=== PATIENT | male | born 1950 | race Caucasian/White ===

== ENCOUNTER 2021-02-28 12:38 | Emergency (ER) | payer OTHER, MEDICARE, SELFPAY ==
[2021-02-28 12:42] VITALS: BP 127/71; PULSE 84; RESP 16; TEMP 37; O2SAT 94; BMI 28.2
--- NOTE | 2021-02-28 12:59 | XRR_ITS ---
PROCEDURE INFORMATION: Exam: XR Chest Exam date and time: 02/28/2021 12:59 PM Age: 70 years old Clinical indication: Injury or trauma; Fall; Blunt trauma (contusions or hematomas); Additional info: Fall, rule out aspiration TECHNIQUE: Imaging protocol: XR of the chest. Views: 1 view. COMPARISON: No relevant prior studies available. FINDINGS: Lungs: Subsegmental atelectasis in the left base. The remaining lung zones are clear. Pleural spaces: Unremarkable. No pleural effusion. No pneumothorax. Heart/Mediastinum: The patient has undergone coronary bypass surgery. Bones/joints: Unremarkable. XR/XR chest 1V portable [id number] IMPRESSION: Mild left basilar atelectasis.
--- NOTE | 2021-02-28 12:59 | CT_ITS ---
WS: [id number] CT HEAD NONCONTRAST HISTORY: fall, prior stroke 2016 TECHNIQUE: Contiguous axial imaging performed through the brain in 2.5 mm imaging. Bone and soft tiss ue windows. Sagittal and coronal reformats reviewed. All CT scans at [facility] use at ast one of these dose optimization techniques: automated exposure control; mA and/or kV adjustment pe r patient size (includes targeted exams where dose is matched to clinical indication); or iterative r econstruction. DLP: 1142.64 mGy.cm COMPARISON: None available. No acute intracranial hemorrhage, midline shift or mass effect. Mild atrophy. Atrophy is asymmetric with greater atrophy on the RIGHT. There is a prior infarct invol ving the posterior RIGHT frontal lobe with encephalomalacia. Diffuse low attenuation involving large portion of the white matter in the RIGHT cerebrum. Encephalomalacia and volume loss near the RIGHT middle cerebral artery. This is probably from a prior hemorrhage. There are multiple aneurysm clips in the region of the distal RIGHT ICA and JAMIL. Ventricles: Mild ex vacuole dilatation of the ventricles, RIGHT greater than LEFT. Paranasal sinuses: As visualized are clear. Mastoid air cells: Well pneumatized. Calvarium and scalp: RIGHT frontotemporal craniotomy site. CT/CT head wo con* [id number] IMPRESSION: 1. No acute intracranial hemorrhage or edema. 2. Postsurgical changes involving the RIGHT frontal lobe with aneurysm clips n ear the distal RIGHT ICA and anterior cerebral artery. No acute hemorrhage. 3. Volume loss and prior ischemic event involving a large portion of the RIGHT frontal lobe with encephalomalacia.
--- NOTE | 2021-02-28 13:00 | ECG_ITS ---
[facility] Test Date: 2021-02-28 Pat Name: Igor Johnson Department: Room: Gender: Male Die Developer: : 1950 Requested By: Kishor Pierson Order Number: [id number] Waqas MD: Jaime Enriquez M.D. Measurements Intervals [place] Rate: 82 P: 60 AL: 218 QRS: 40 QRSD: 98 T: 63 QT: 369 QTc: 433 Interpretive Statements SINUS RHYTHM WITH FIRST DEGREE AV BLOCK POSSIBLE INFERIOR MYOCARDIAL INFARCTION , PROBABLY OLD [30 ms Q WAVE IN II/aVF] POSSIBLE ANTEROLATERAL MYOCARDIAL INFARCTION , PROBABLY OLD [30 ms Q WAVE IN I/aVL/V3-V6] No previous ECG available for comparison Electronically Signed On 02-28-2021 19:28:52 CDT by Jaime Enriquez M.D. [id number]
--- NOTE | 2021-02-28 13:05 | W.ED.GENADLT ---
HPI - General Adult General: Chief complaint: Seizure Stated complaint: SEIZURE, VOMITING Time Seen by Provider: 02/28/21 12:41 History of Present Illness: HPI narrative: HPI: [70]yo patient w/ hx of seizures since 2016, prior stroke in 2016 c/b R sided weakness, prior aneurysmal clipping, DM, CABG BIBA from snf with breakthrough episode of seizure with unknown duration which occurred earlier this morning. This episode was not witnessed by snf staff. Patient reports that he was walking to the bathroom when this happened. Patient denies any bruises on his head, injuries or collapse. By the time, snf found patient, he was AAOx3. He reports he had muscle cramps which is associated with prior episodes of seizures. Patient is on keppra 1000mg BID for seizure and he reports taking the medicine compliantly.. He had about 1 episode of emesis. Denies any other GI or complaints. En route, the patient had a fingerstick glucose wnl and was back to baseline. HDS without any signs of focal neurological deficits. On arrival, the patient is AAOx3, GCS of 15 and answering all questions. The patient denies any associated chest pain, shortness of breath, palpitations, or any focal pain in the arms and legs. Of note, patient has reported gradual jaundice x 3 weeks. Onset: earlier today Duration: x1 episode Location: home Severity: moderate Review of Systems Narrative: Constitutional: No fever, no chills. HEENT: No vision changes CV: No chest pain, no palpitations PULM: No productive cough, no dyspnea. GI: No abdominal pain, no N/V/D. +jaundice : No Dysuria MSKEL: No muscle pain SKIN: No new rashes, no lesions. NEURO: No headache, no focal weakness. + 1 episode of seizure HEME: No visible bruises PSYCH: Normal mood Physical Exam Narrative: EXAM NARRATIVE: Head: Atraumatic Eyes: PERRL, conjunctiva without injection, eyes tracking, +mild scleral icterus ENT: Mucous membrane moist NECK: Supple without lymphadenopathy LUNGS: LCTAB CV: RRR ABDOMEN: Soft, nontender in all quadrants, no guarding or rebound tenderness, no CVA or flank tenderness bilaterally EXTREMITY: Normal ROM SKIN: No rash or erythema NEURO: CN II-XII tested and intact. Sensation intact to sharp/dull differentiation in all extremities. Motor: Normal tone and bulk. No abnormal movements appreciated. No pronator drift. Strength tested 5/5 L wrist flexion/extension, L elbow flexion/extension, L shoulder abduction, L straight leg raise, L knee flexion/extension, L ankle dorsiflexion/plantarflexion. Strength tested 3-4/5 L wrist flexion/extension, L elbow flexion/extension, L shoulder abduction, L straight leg raise, L knee flexion/extension, L ankle dorsiflexion/plantarflexion. Coordination: Finger to nose and heel to young testing intact L. Unable to perform finger to nose on the R. PSYCH: Cooperative mood and affect Course Vital Signs: Vital signs: Vital Signs Temperature 98.6 F 02/28/21 12:42 Pulse Rate 67 02/28/21 21:07 Respiratory Rate 18 02/28/21 21:07 Blood Pressure 117/64 02/28/21 21:07 Pulse Oximetry 96 02/28/21 21:07 MDM - General Adult MDM Narrative: Medical decision making narrative: [70]yo patient w/ known hx of seizure on keppra 1000mg BID medications BIBA for concern of possible unwitnessed seizure at snf. Back to baseline on arrival, AAOX3, neuro exam consistsent with baseline exam. HDS. Exam revealed no focal trauma/deformity/bruises.The episode of seizure was witnessed and without any trauma/injury to the head. No immunosuppression hx and without preceding fever. No lips/tongue lacerations. No visible bowel/bladder incontinence Airway protected. No drooling. Sats > 95%. Unlikely to be stroke, neurogenic syncope, acute delirium, intracranial tumor/mass, intracranial bleed, SAH/subdural hematoma/epidural hematoma, meningitis, or intracranial abscess, or from alcohol withdrawal. POC glucose: 150 Workup: CBC, BMP, Magnesium, EKG, CT brain ED Interventions: 1g of keppra, PO challenge, serial reassessment EKG: No e/o STEMI. No evidence of Brugada?s sign, delta wave, epsilon wave, significantly prolonged QTc, or malignant arrhythmia. Lab findings: Sodium of 130, troponin of 17, T bili of 6 [2:24] On reassessment, patient back to baseline. In the ED, the patient received 1g of keppra in the ED. No other witnessed episodes of seizure while the patient was observed in the ED. Repeat neuro exam is non-focal. Unlikely to be alternative causes of seizures since the patient has no hx of immunosuppression, no recent fevers, no recent abx/LINE PRODUCER shunt, no recent toxic exposure, no unilateral or focal weakness, or trauma. Order CT abdomen pelvis and refer quadrant ultrasound for evaluation T bili of 6. Have discussed the findings of these reports and his lab abnormality with the patient. I explained to him that is unlikely to a sodium 130 would be causing his seizure. Patient has a history of CABG today his troponin is noted to be 17 with unknown baseline. US showed CBD enlargement and CT abd+pelvis showed possible stone vs tissue causing obstruction. I discussed case with our hospitalist who agrees with inpatient admission for MRCP. However, right prior to MRCP, patient was deemed not a candidate for MRCP given aneurysmal clipping. Given no GI services here in our hospital to perform ERCP, the decision was made to transfer patient. I have discussed case with Dr. Allan from [facility] who agrees with transfer at this time. Physician: Transfer to outside hospital for ERCP Lab Data: Labs: Lab Results 02/28/21 02/28/21 02/28/21 Range/Units 13:00 13:00 13:00 WBC 9.7 (4.0-10.0) 10^3/ uL RBC 4.64 (4.1-5.3) 10^6/u L Hgb 14.0 (11.7-16.6) g/dL Hct 42.7 (42.0-52.0) % MCV 92.0 (80-94) fl MCH 30.2 (28.0-34.0) pg MCHC 32.8 (30.0-36.0) g/dL RDW 14.6 (12.1-15.1) % Plt Count 245 (130-400) 10^3/c mm MPV 10.9 H (7.4-10.4) fL Neut % (Auto) 89.1 % Lymph % (Auto) 3.9 % [place] % (Auto) 6.2 % Eos % (Auto) 0.1 % Baso % (Auto) 0.2 % Neut # (Auto) 8.64 H (1.8-7.7) 10^3/u L Lymph # (Auto) 0.4 L (0.8-4.8) 10^3/u L [place] # (Auto) 0.6 (0.2-0.9) 10^3/u L Eos # (Auto) 0.0 (0.0-0.8) 10^3/u L Baso # (Auto) 0.0 (0.0-0.1) 10^3/u L Nucleated RBC % (a uto) 0 % Nucleated RBCs # 0.0 /100WBC Sodium 130 L (136-145) mmol/L Potassium 4.5 (3.5-5.1) mmol/L Chloride 94 L (98-107) mmol/L Carbon Dioxide 22 (22-29) mmol/L Anion Gap 18.5 (5-19) BUN 18 (8-23) mg/dL Creatinine 1.0 (0.7-1.2) mg/dL GFR Calculation Not Reportable Glucose 199 H (65-115) mg/dL Calculated Osmolal ity 277 L (285-295) mOsm/k g Calcium 9.5 (8.5-10.5) mg/dL Total Bilirubin 6.5 H (0.15-1.2) mg/dL AST 159 H (0-40) U/L ALT 196 H (0-41) U/L Alkaline Phosphata se 413 H (40-130) IU/L Troponin T Baselin e 18 H (0-15) ng/L Troponin T 120 Min jermaine (0-15) ng/L Delta Troponin T (0-10) ABS# Total Protein 7.2 (6.6-8.7) g/dL Albumin 4.0 (3.5-5.2) g/dL Globulin 3.2 (1.3-4.6) g/dL Lipase 46 (13-60) U/L Urine Color (Yellow) Urine Appearance (CLEAR) Urine pH (5-7) Ur Specific Gravit y (1.005-1.030) Urine Protein (Negative) Urine Glucose (UA) (Normal) Urine Ketones (Negative) Urine Blood (Negative) Urine Nitrate (Negative) Urine Bilirubin (Negative) Urine Urobilinogen (Negative) mg/dL Ur Leukocyte Carina ase (Negative) Urine RBC (0-2) /hpf Urine WBC (0-5) /hpf Ur Squamous Epith Cells (0-5) /hpf Amorphous Sediment Urine Bacteria (NONE) /hpf SARS-CoV-2 Ag (Rap id) (Negative) 02/28/21 02/28/21 02/28/21 Range/Units 14:10 14:15 15:00 WBC (4.0-10.0) 10^3/ uL RBC (4.1-5.3) 10^6/u L Hgb (11.7-16.6) g/dL Hct (42.0-52.0) % MCV (80-94) fl MCH (28.0-34.0) pg MCHC (30.0-36.0) g/dL RDW (12.1-15.1) % Plt Count (130-400) 10^3/c mm MPV (7.4-10.4) fL Neut % (Auto) % Lymph % (Auto) % [place] % (Auto) % Eos % (Auto) % Baso % (Auto) % Neut # (Auto) (1.8-7.7) 10^3/u L Lymph # (Auto) (0.8-4.8) 10^3/u L [place] # (Auto) (0.2-0.9) 10^3/u L Eos # (Auto) (0.0-0.8) 10^3/u L Baso # (Auto) (0.0-0.1) 10^3/u L Nucleated RBC % (a uto) % Nucleated RBCs # /100WBC Sodium (136-145) mmol/L Potassium (3.5-5.1) mmol/L Chloride (98-107) mmol/L Carbon Dioxide (22-29) mmol/L Anion Gap (5-19) BUN (8-23) mg/dL Creatinine (0.7-1.2) mg/dL GFR Calculation Glucose (65-115) mg/dL Calculated Osmolal ity (285-295) mOsm/k g Calcium (8.5-10.5) mg/dL Total Bilirubin (0.15-1.2) mg/dL AST (0-40) U/L ALT (0-41) U/L Alkaline Phosphata se (40-130) IU/L Troponin T Baselin e (0-15) ng/L Troponin T 120 Min jermaine 17.91 H (0-15) ng/L Delta Troponin T -0.09 L (0-10) ABS# Total Protein (6.6-8.7) g/dL Albumin (3.5-5.2) g/dL Globulin (1.3-4.6) g/dL Lipase (13-60) U/L Urine Color [place] (Yellow) Urine Appearance Clear (CLEAR) Urine pH 5 (5-7) Ur Specific Gravit y 1.010 (1.005-1.030) Urine Protein Trace (Negative) Urine Glucose (UA) Trace H (Normal) Urine Ketones Negative (Negative) Urine Blood Neg (Negative) Urine Nitrate Negative (Negative) Urine Bilirubin 2+ H (Negative) Urine Urobilinogen 4 H (Negative) mg/dL Ur Leukocyte Carina ase Negative (Negative) Urine RBC None (0-2) /hpf Urine WBC None (0-5) /hpf Ur Squamous Epith Cells None (0-5) /hpf Amorphous Sediment Not Reportable Urine Bacteria None (NONE) /hpf SARS-CoV-2 Ag (Rap id) Negative (Negative) Imaging Data^: Other Imaging: Radiologist's impression: [address] [id number] Scan ReportSigned Patient: Alisson Johnson #: [id number]: 1950cct#:[id number]/Sex: 70 / MADM Date: 02/28/21Loc: ERRoom/Bed:Attending Dr: Ordering Provider/Ordering MD: Kishor Pierson MD Date of Service: 02/28/21 Procedure(s): CT head wo con* [id number] Accession Number(s): [id number] Report Number: [id number] WS: [id number] CT HEAD NONCONTRAST HISTORY: fall, prior stroke 2016 TECHNIQUE: Contiguous axial imaging performed through the brain in 2.5 mm imaging. Bone and soft tissue windows. Sagittal and coronal reformats reviewed. All CT scans at [facility] use at least one of these dose optimization techniques: automated exposure control; mA and/or kV adjustment per patient size (includes targeted exams where dose is matched to clinical indication); or iterative reconstruction. DLP: 1142.64 mGy.cm COMPARISON: None available. No acute intracranial hemorrhage, midline shift or mass effect. Mild atrophy. Atrophy is asymmetric with greater atrophy on the RIGHT. There is a prior infarct involving the posterior RIGHT frontal lobe with encephalomalacia. Diffuse low attenuation involving large portion of the white matter in the RIGHT cerebrum. Encephalomalacia and volume loss near the RIGHT middle cerebral artery. This is probably from a prior hemorrhage. There are multiple aneurysm clips in the region of the distal RIGHT ICA and JAMIL. Ventricles: Mild ex vacuole dilatation of the ventricles, RIGHT greater than LEFT. Paranasal sinuses: As visualized are clear. Mastoid air cells: Well pneumatized. Calvarium and scalp: RIGHT frontotemporal craniotomy site. CT/CT head wo con* [id number] IMPRESSION: 1. No acute intracranial hemorrhage or edema. 2. Postsurgical changes involving the RIGHT frontal lobe with aneurysm clips near the distal RIGHT ICA and anterior cerebral artery. No acute hemorrhage. 3. Volume loss and prior ischemic event involving a large portion of the RIGHT frontal lobe with encephalomalacia. Dictated By:Diana Hendricks DOSigned By:Diana Hendricks DOSigned Date/Time:02/28/21 1322DD/ [address] [id number] ReportSigned Patient: Alisson Johnson #: [id number]: [id number]#:[id number]/Sex: 70 / MADM Date: 02/28/21Loc: [facility] [place]/Bed:Attending Dr: Ordering Provider/Ordering MD: Kishor Pierson MD Date of Service: 02/28/21 Procedure(s): XR chest 1V portable [id number] Accession Number(s): [id number] Report Number: [id number] PROCEDURE INFORMATION: Exam: XR Chest Exam date and time: 02/28/2021 12:59 PM Age: 70 years old Clinical indication: Injury or trauma; Fall; Blunt trauma (contusions or hematomas); Additional info: Fall, rule out aspiration TECHNIQUE: Imaging protocol: XR of the chest. Views: 1 view. COMPARISON: No relevant prior studies available. FINDINGS: Lungs: Subsegmental atelectasis in the left base. The remaining lung zones are clear. Pleural spaces: Unremarkable. No pleural effusion. No pneumothorax. Heart/Mediastinum: The patient has undergone coronary bypass surgery. Bones/joints: Unremarkable. XR/XR chest 1V portable [id number] IMPRESSION: Mild left basilar atelectasis. Dictated By:Tommy Vail By:Tommy Vail Date/Time:02/28/21 1354DD/ [address] [id number] Scan ReportSigned Patient: Alisson Johnson #: [id number]: 1950cct#:[id number]/Sex: 70 / MADM Date: 02/28/21Loc: ERRoom/Bed:Attending Dr: Ordering Provider/Ordering MD: Kishor Pierson MD Date of Service: 02/28/21 Procedure(s): CT abdomen pelvis w con* [id number] Accession Number(s): [id number] Report Number: [id number] WS: [id number] CT ABDOMEN AND PELVIS WITH CONTRAST HISTORY: t bili elevation and lab abnormality TECHNIQUE: Imaging performed of the abdomen and pelvis with IV contrast. Single phase imaging of the abdomen. Coronal and sagittal reformats are submitted. All CT scans at [facility] use at least one of these dose optimization techniques: automated exposure control; mA and/or kV adjustment per patient size (includes targeted exams where dose is matched to clinical indication); or iterative reconstruction. IV CONTRAST: Omnipaque 300; 95 mL IV. Oral contrast: No DLP: 1945.99 mGy.cm COMPARISON: Gallbladder ultrasound 02/28/2021 Lower thorax: Dependent changes at the lung bases. Heart is normal size. Small hiatal hernia. Liver/biliary system: Normal size liver. Mild intrahepatic duct dilatation. No mass identified. Portal vein is normal. Common bile duct is dilated measuring up to 11 mm in diameter. There is a filling defect in the distal common bile duct near the ampulla measuring 8 mm. Gallbladder: Well distended gallbladder. Small amount of sludge within the gallbladder but no stones identified. Pancreas: Normal pancreas. Common bile duct at pancreatic head is dilated to 11 mm. There is a filling defect measuring 9 mm within the common bile duct. Spleen: Normal size spleen. No mass or infarct. Adrenal glands: Mild LEFT adrenal hyperplasia. Right kidney: Normal. Left kidney: Upper pole cyst measures 3.0 cm. No solid mass. Aorta: Moderate atherosclerosis with no aneurysm. Lymphadenopathy: None. Free fluid: None. GI tract: Normal appendix. Moderate fecal retention throughout the colon. No significant diverticular disease. There is very mild rectal wall thickening which is asymmetric and greatest on the RIGHT measuring up to 12 mm. Prostate gland seeds are noted. Inguinal canals are patent bilaterally. Abdominal wall: Fat containing umbilical hernia. Pelvis: No free fluid or adenopathy within the pelvis. Patent inguinal canals. Bones: Moderate facet joint arthritis and disc space narrowing at L5-S1. CT/CT abdomen pelvis w con* [id number] IMPRESSION: 1. Moderate intrahepatic and extra hepatic bile duct dilatation. Common bile duct measures 11 mm at the pancreatic head. 2. Filling defect of mild increased density in the distal common bile duct causing the obstruction. Soft tissue nodule versus distal common bile duct stone. 3. Pancreatic duct is not dilated. 4. Recommend ERCP for further evaluation. 5. Small amount of gallbladder sludge. 6. Rectal wall thickening asymmetric to the RIGHT. Proctitis versus neoplasm. 7. Moderate atherosclerosis aorta. Dictated By:Diana Hendricks DOSigned By:Diana Hendricks DOSigned Date/Time:02/28/21 1516DD/ [address] [id number] ReportSigned Patient: Alisson Johnson #: [id number]: [id number]#:[id number]/Sex: 70 / MADM Date: 02/28/21Loc: ERRoom/Bed:Attending Dr: Ordering Provider/Ordering MD: Kishor Pierson MD Date of Service: 02/28/21 Procedure(s): US gall bladder 17699 Accession Number(s): [id number] Report Number: [id number] WS: [email or web address] RIGHT UPPER QUADRANT ULTRASOUND HISTORY: RIGHT upper quadrant pain. COMPARISON: None available. Liver: 16.8 cm in length. Mild enlargement with coarse echotexture. No mass or bile duct dilatation. Gallbladder: Normally distended gallbladder with a small amount of sludge. No edema evident. CBD: 1.2 cm Pancreas: Not visualized. Right kidney: 11.9 cm in length. Normal size and echogenicity. No hydronephrosis or mass. Aorta and IVC: Unremarkable abdominal aorta and IVC. No ascites. US/US gall bladder [id number] IMPRESSION: 1. Dilated common bile duct. Cannot exclude distal bile duct stone or mass at the pancreatic head. Follow-up with CT abdomen and pelvis. 2. Gallbladder sludge. No stones identified in the gallbladder. 3. Mild hepatic steatosis and hepatomegaly. Dictated By:Diana Hendricks DOSigned By:Diana Hendricks DOSigned Date/Time:02/28/21 1438DD/ 1436 [facility] [place] [id number] ReportSigned Patient: Alisson Johnson #: [id number]: [id number]#:[id number]/Sex: 70 / MADM Date: 02/28/21Loc: ERRoom/Bed:Attending Dr: Ordering Provider/Ordering MD: Kishor Pierson MD Date of Service: 02/28/21 Procedure(s): US gall bladder 55567 Accession Number(s): [id number] Report Number: [id number] WS: [email or web address] RIGHT UPPER QUADRANT ULTRASOUND HISTORY: RIGHT upper quadrant pain. COMPARISON: None available. Liver: 16.8 cm in length. Mild enlargement with coarse echotexture. No mass or bile duct dilatation. Gallbladder: Normally distended gallbladder with a small amount of sludge. No edema evident. CBD: 1.2 cm Pancreas: Not visualized. Right kidney: 11.9 cm in length. Normal size and echogenicity. No hydronephrosis or mass. Aorta and IVC: Unremarkable abdominal aorta and IVC. No ascites. US/US gall bladder [id number] IMPRESSION: 1. Dilated common bile duct. Cannot exclude distal bile duct stone or mass at the pancreatic head. Follow-up with CT abdomen and pelvis. 2. Gallbladder sludge. No stones identified in the gallbladder. 3. Mild hepatic steatosis and hepatomegaly. Dictated By:Diana Hendricks DOSigned By:Diana Hendricks DOSigned Date/Time:02/28/21 1438DD/ 1436 Discharge Plan Discharge Patient Disposition: Admitted As Inpatient Clinical Impression: Seizure, Bilirubinemia, Common bile duct (CBD) obstruction Condition: Stable Coding Level of Care Code ED Relations Liaison for Marisol Alcantar
[2021-02-28 13:16] LABS: Basophils % 0.2 %; Eosinophils % 0.1 %; Hematocrit 42.7 % (42.0-52.0); Lymphocytes # 0.4 10^3/uL (0.8-4.8); Lymphocytes % 3.9 %; Mean Corpuscular HGB Conc 32.8 g/dL (30.0-36.0); Mean Corpuscular Hemoglobin 30.2 pg (28.0-34.0); Mean Platelet Volume 10.9 fL (7.4-10.4); Monocytes # 0.6 10^3/uL (0.2-0.9); Monocytes % 6.2 %; Neutrophils # 8.64 10^3/uL (1.8-7.7); Neutrophils % 89.1 %; Nucleated Red Blood Cells % 0 %; Platelet Count 245 10^3/cmm (130-400); Red Blood Count 4.64 10^6/uL (4.1-5.3); Red Cell Distribution Width 14.6 % (12.1-15.1); White Blood Count 9.7 10^3/uL (4.0-10.0)
[2021-02-28 13:36] LABS: Alanine Aminotransferase 196 U/L (0-41); Alkaline Phosphatase 413 IU/L (40-130); Blood Urea Nitrogen 18 mg/dL (8-23); Calcium 9.5 mg/dL (8.5-10.5); Carbon Dioxide 22 mmol/L (22-29); Chloride 94 mmol/L (98-107); Globulin 3.2 g/dL (1.3-4.6); Glucose 199 mg/dL (65-115); Lipase 46 U/L (13-60); Osmolality Calculated 277 mOsm/kg (285-295); Sodium 130 mmol/L (136-145); Total Bilirubin 6.5 mg/dL (0.15-1.2); Total Protein 7.2 g/dL (6.6-8.7)
[2021-02-28 13:37] LABS: Troponin(5th) Baseline 18 ng/L (0-15)
[2021-02-28 13:41] LABS: Anion Gap 18.5 (5-19); Aspartate Amino Transferase 159 U/L (0-40); Potassium 4.5 mmol/L (3.5-5.1)
[2021-02-28] MEDS: sodium chloride 0.9% 500 ML IV (13:56)
[2021-02-28] MEDS: levETIRAcetam 500 mg Tablet 1000 MG PO (13:56)
--- NOTE | 2021-02-28 13:59 | US_ITS ---
WS: [email or web address] RIGHT UPPER QUADRANT ULTRASOUND HISTORY: RIGHT upper quadrant pain. COMPARISON: None available. Liver: 16.8 cm in length. Mild enlargement with coarse echotexture. No mass or bile duct dilatation. Gallbladder: Normally distended gallbladder with a small amount of sludge. No edema evident. CBD: 1.2 cm Pancreas: Not visualized. Right kidney: 11.9 cm in length. Normal size and echogenicity. No hydronephrosis or mass. Aorta and IVC: Unremarkable abdominal aorta and IVC. No ascites. US/US gall bladder [id number] IMPRESSION: 1. Dilated common bile duct. Cannot exclude distal bile duct stone or mass at the pancreatic head. Follow-up with CT abdomen and pelvis. 2. Gallbladder sludge. No stones identified in the gallbladder. 3. Mild hepatic steatosis and hepatomegaly.
--- NOTE | 2021-02-28 14:06 | PC.PHAR ---
pt is from [facility]-caleb from [facility] states the pt had his am meds
--- NOTE | 2021-02-28 14:09 | CT_ITS ---
WS: [id number] CT ABDOMEN AND PELVIS WITH CONTRAST HISTORY: t bili elevation and lab abnormality TECHNIQUE: Imaging performed of the abdomen and pelvis with IV contrast. Single phase imaging of the abdomen. Coronal and sagittal reformats are submitted. All CT scans at use at least one of these dose optimization techniques: automated exposure control; mA and/or kV adjustment per patient size (includes targeted exams where dose is matched to clinical indication); or iterativ e reconstruction. IV CONTRAST: Omnipaque 300; 95 mL IV. Oral contrast: No DLP: 1945.99 mGy.cm COMPARISON: Gallbladder ultrasound 02/28/2021 Lower thorax: Dependent changes at the lung bases. Heart is normal size. Small hiatal hernia. Liver/biliary system: Normal size liver. Mild intrahepatic duct dilatation. No mass identified. Edgar l vein is normal. Common bile duct is dilated measuring up to 11 mm in diameter. There is a filling d efect in the distal common bile duct near the ampulla measuring 8 mm. Gallbladder: Well distended gallbladder. Small amount of sludge within the gallbladder but no stones identified. Pancreas: Normal pancreas. Common bile duct at pancreatic head is dilated to 11 mm. There is a fillin g defect measuring 9 mm within the common bile duct. Spleen: Normal size spleen. No mass or infarct. Adrenal glands: Mild LEFT adrenal hyperplasia. Right kidney: Normal. Left kidney: Upper pole cyst measures 3.0 cm. No solid mass. Aorta: Moderate atherosclerosis with no aneurysm. Lymphadenopathy: None. Free fluid: None. GI tract: Normal appendix. Moderate fecal retention throughout the colon. No significant diverticular disease. There is very mild rectal wall thickening which is asymmetric and greatest on the RIGHT yane suring up to 12 mm. Prostate gland seeds are noted. Inguinal canals are patent bilaterally. Abdominal wall: Fat containing umbilical hernia. Pelvis: No free fluid or adenopathy within the pelvis. Patent inguinal canals. Bones: Moderate facet joint arthritis and disc space narrowing at L5-S1. CT/CT abdomen pelvis w con* [id number] IMPRESSION: 1. Moderate intrahepatic and extra hepatic bile duct dilatation. Common bile d uct measures 11 mm at the pancreatic head. 2. Filling defect of mild increased density in the distal common bile duct cau sing the obstruction. Soft tissue nodule versus distal common bile duct stone. 3. Pancreatic duct is not dilated. 4. Recommend ERCP for further evaluation. 5. Small amount of gallbladder sludge. 6. Rectal wall thickening asymmetric to the RIGHT. Proctitis versus neoplasm. 7. Moderate atherosclerosis aorta.
[2021-02-28] MEDS: iohexol 300 mg/mL 100 mL Btl IV (14:50)
--- NOTE | 2021-02-28 15:00 | ECG_ITS ---
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 Measurements Intervals [place] Rate: 76 P: 57 OK: 232 QRS: 24 QRSD: 102 T: 63 QT: 389 QTc: 437 Interpretive Statements SINUS RHYTHM WITH FIRST DEGREE AV BLOCK POSSIBLE LATERAL MYOCARDIAL INFARCTION , PROBABLY OLD [30 ms Q WAVE IN I/aVL/V5/V6] POSSIBLE INFERIOR MYOCARDIAL INFARCTION , PROBABLY OLD [30 ms Q WAVE IN II/aVF] Compared to ECG 02/28/2021 13:32:23 No significant changes Electronically Signed On 02-28-2021 19:30:38 CDT by Jaime Enriquez M.D. [id number]
[2021-02-28 15:20] LABS: SARS Covid-2 Antigen Negative (Negative)
[2021-02-28 15:58] LABS: Troponin 5 2HR 17.91 ng/L (0-15)
[2021-02-28 16:06] LABS: Troponin 5 2HR Delta -0.09 ABS# (0-10)
[2021-02-28 16:14] VITALS: BP 121/68; PULSE 74; RESP 18; O2SAT 97
[2021-02-28 16:26] LABS: Urine Appearance Clear (CLEAR); Urine Color Amber (Yellow); pH Urine 5 (5-7)
[2021-02-28 16:27] LABS: Add Urine Microscopic? YES; Bilirubin Urine 2+ (Negative); Blood Urine Neg (Negative); Glucose Urine UA Trace (Normal); Ketones Urine Negative (Negative); Leukocyte Esterase Urine Negative (Negative); Nitrate Urine Negative (Negative); Protein Urine Trace (Negative); Urobilinogen Urine 4 mg/dL (Negative)
[2021-02-28 16:29] LABS: Add Urine Culture? No
[2021-02-28 17:33] VITALS: BP 113/64; PULSE 76; RESP 18; O2SAT 96
--- NOTE | 2021-02-28 19:16 | PC.NURSE ---
Dr Pierson approves for patient to eat as it will be tomorrow before testing. patient eating crackers and drinking milk at this time. he does not want a meal.
--- NOTE | 2021-02-28 20:19 | PC.NURSE ---
report to Hero Iraheta RN at [facility]
[2021-02-28 21:07] VITALS: BP 117/64; PULSE 67; RESP 18; O2SAT 96
--- NOTE | 2021-03-02 11:09 | DCPLANNER ---
[facility] manager had message to refer patient to neurology, cardiology and GI - patient was transferred to another facility.
== END 2021-02-28 21:10 | disposition admitted as inpatient to this hospital (09) ==
PROVIDERS: Emergency Provider Emergency Medicine; PCP Internal Medicine
DX: R56.9 Unspecified convulsions (principal); K82.8 Other specified diseases of gallbladder; E11.9 Type 2 diabetes mellitus without complications; I69.351 Hemiplegia and hemiparesis following cerebral infarction affecting right dominant side; Z95.1 Presence of aortocoronary bypass graft
CPT/HCPCS: 70450; 71045; 74177; 76705; 80053; 81001; 83690; 84484; 85025; 87426; 93005; 96360; 99285; J7040; Q9967

== ENCOUNTER 2021-04-12 04:55 | Observation (INO) | payer OTHER, MEDICARE, SELFPAY ==
[2021-04-12] VITALS (14 sets, daily range): BP systolic 109–129; BP diastolic 56–78; PULSE 65–100; RESP 16–29; TEMP 36.4–38.4; O2SAT 92–98; BMI 29.5
--- NOTE | 2021-04-12 05:02 | CTR_ITS ---
PROCEDURE INFORMATION: Exam: CT Abdomen And Pelvis With Contrast Exam date and time: 04/12/2021 5:02 AM Age: 70 years old Clinical indication: Abdominal pain; Generalized; Additional info: Abd pain patient is status post cholecystectomy approximately 8 days ago. TECHNIQUE: Imaging protocol: Computed tomography of the abdomen and pelvis with contrast. Radiation optimization: All CT scans at this facility use at least one of these dose optimization techniques: automated exposure control; mA and/or kV adjustment per patient size (includes targeted exams where dose is matched to clinical indication); or iterative reconstruction. Contrast material: OMNI 300; Contrast volume: 95 ml; Contrast route: INTRAVENOUS (IV); COMPARISON: CT abdomen pelvis w con* [id number] 02/28/2021 2:38 PM RADIATION DOSE METRICS: Total DLP (mGy-cm): 2103 FINDINGS: Lungs: There are bilateral patchy airspace opacities with small effusions probably representing atelectasis. Small hiatal hernia. Liver: Fatty liver. Gallbladder and bile ducts: Status post cholecystectomy with interval placement of a stent within the common bile duct. There is an ill-defined air containing fluid collection at the level of the gallbladder fossa measuring 4.7 x 4.3 x 6 cm which may represent an abscess. There is pneumobilia. Pancreas: No ductal dilation. Spleen: No splenomegaly. Adrenal glands: Normal. No mass. Kidneys and ureters: 3 cm cyst noted in the upper pole of the left kidney. No hydronephrosis. Stomach and bowel: Large amount of stool noted in the rectum. Previously described mild asymmetric rectal wall thickening is not appreciated on this examination in limited due to the amount of stool noted in the rectum. No dilated bowel loops. No high-grade obstruction. Appendix: No evidence of appendicitis. Intraperitoneal space: No free air. Vasculature: Atherosclerotic changes of the aorta. Lymph nodes: No enlarged lymph nodes. Urinary bladder: Unremarkable as visualized. Reproductive: Prostate gland seeds are again noted. Bones/joints: Unremarkable. No acute fracture. Soft tissues: Bilateral fat containing inguinal hernias. CT/CT abdomen pelvis w con* [id number] IMPRESSION: 1. Status post cholecystectomy with interval placement of a stent within the common bile duct. There is an ill-defined air containing fluid collection at the level of the gallbladder fossa measuring 4.7 x 4.3 x 6 cm which may represent postoperative changes in keeping with recent cholecystectomy. If symptoms persist, short-term repeat follow-up may be considered. 2. Constipation. COMMENTS: Consistent with the [employer]'s Incidental Findings Committee white paper (J Am Lou Radiol 2018): Any incidental renal lesion less than 1 cm or classified as too small to characterize, or any incidental cystic renal lesion characterized as simple-appearing, is likely benign. No follow-up imaging is recommended for these lesions per consensus recommendations based on imaging criteria. Radiation Dose CTDIVOL = (mGy): DLP = 2104 (mGy-cm)
--- NOTE | 2021-04-12 05:04 | W.ED.ABDPA2 ---
Documented by User: Negin Stephenson MD 04/12/21 05:06 HPI - Abdominal Pain General: Chief Complaint: Abdominal Pain Stated Complaint: ABD PAIN Time Seen by Provider: 04/12/21 04:56 Source: patient and EMS Mode of arrival: EMS Limitations: no limitations History of Present Illness: HPI narrative: 70-year-old male who is here from longterm. He had his gallbladder removed 1 week ago and states that he had increasing pain over the last 2 days. States pains been diffuse and rates it a 5 out of 10 currently. Denies any vomiting denies any fever. Did have a bowel movement today. States pain is worse with palpation. Denies any radiation of his pain. Associated Symptoms: Denies chills, diarrhea, dysuria, fever(s), nausea and vomiting Review of Systems Const: Denies: fever(s), chills, body aches or change in appetite Eyes: Denies: blurry vision or eye discomfort ENMT: Denies: throat pain or dental pain Card: Denies: chest pain Resp: Denies: dyspnea GI: Denies: abdominal pain, nausea, vomiting or diarrhea : Denies: dysuria Musc: Denies: neck pain or back pain Skin/Breast: Denies: rash Neuro: Denies: headache(s) Psych: Denies: depression Yamil/Lymph: Denies: easy bruising All/Imm: Denies: urticaria Physical Exam Const: COMMON NORMALS: no acute distress, patient oriented x3 and healthy appearing HENMT: COMMON NORMALS: normocephalic and atraumatic HEAD & SCALP: normocephalic and atraumatic Eye: COMMON NORMALS: Equal, round and reactive pupils present and EOMs intact bilaterally PUPIL: Yes Equal, round and reactive pupils present Neck/C-Spine: COMMON NORMALS: full ROM and supple Chest: COMMONS NORMALS: normal inspection of the chest and normal palpation of entire chest wall Resp: COMMON NORMALS: normal respiratory effort, No retractions, No use of accessory muscles and clear to auscultation bilaterally AUSCULTATION: clear to auscultation bilaterally Cardio: COMMON NORMALS: regular rate, regular rhythm and No murmurs present (Cardio) RATE: regular rate RHYTHM: regular rhythm GI: COMMON NORMALS: Normal to inspection, nondistended, normoactive bowel sounds present, Soft to palpation and no masses PALPATION: Yes Soft to palpation OTHER: Incisions clean and dry intact on abdomen diffuse mild abdominal tenderness Extremity: COMMON NORMALS: normal to inspection and full ROM Neuro: COMMON NORMALS: patient oriented x3, moves all extremities and no focal motor deficits Psych: COMMON NORMALS: mental status grossly normal, Normal thought process present and cooperative THOUGHT PROCESS: Normal thought process present Skin: COMMON NORMALS: no rashes or lesions noted and no wounds GENERAL SKIN EXAM: no rashes or lesions noted Course Vital Signs: Vital signs: Vital Signs Temperature 98.3 F 04/12/21 09:00 Pulse Rate 65 04/12/21 09:00 Respiratory Rate 25 H 04/12/21 09:00 Blood Pressure 109/58 04/12/21 09:00 Pulse Oximetry 93 04/12/21 09:00 MDM - Abdominal Pain Lab Data: Labs: Lab Results 04/12/21 04/12/21 04/12/21 05:04 05:04 05:04 WBC 8.0 10^3/uL 10^3/ uL (4.0-10.0) RBC 4.58 10^6/uL 10^6 /uL (4.1-5.3) Hgb 14.1 g/dL g/dL (11.7-16.6) Hct 41.4 % L % (42.0-52.0) MCV 90.4 fl fl (80-94) MCH 30.8 pg pg (28.0-34.0) MCHC 34.1 g/dL g/dL (30.0-36.0) RDW 13.0 % % (12.1-15.1) Plt Count 309 10^3/cmm 10^3 /cmm (130-400) MPV 10.2 fL fL (7.4-10.4) Neut % (Auto) 81.7 % % Lymph % (Auto) 12.4 % % [place] % (Auto) 4.3 % % Eos % (Auto) 0.8 % % Baso % (Auto) 0.4 % % Neut # (Auto) 6.55 10^3/uL 10^3 /uL (1.8-7.7) Lymph # (Auto) 1.0 10^3/uL 10^3/ uL (0.8-4.8) [place] # (Auto) 0.3 10^3/uL 10^3/ uL (0.2-0.9) Eos # (Auto) 0.1 10^3/uL 10^3/ uL (0.0-0.8) Baso # (Auto) 0.0 10^3/uL 10^3/ uL (0.0-0.1) Nucleated RBC % (a uto) 0 % % Nucleated RBCs # 0.0 /100WBC /100W BC Sodium 135 mmol/L L mmol /L (136-145) Potassium 4.3 mmol/L mmol/L (3.5-5.1) Chloride 97 mmol/L L mmol/ L (98-107) Carbon Dioxide 22 mmol/L mmol/L (22-29) Anion Gap 20.3 H (5-19) BUN 17 mg/dL mg/dL (8-23) Creatinine 1.1 mg/dL mg/dL (0.7-1.2) GFR Calculation Not Reportable Glucose 165 mg/dL H mg/dL (65-115) Calculated Osmolal ity 285 mOsm/kg mOsm/ kg (285-295) Lactic Acid 1.3 mmol/L mmol/L (0.5-2.2) Calcium 9.9 mg/dL mg/dL (8.5-10.5) Total Bilirubin 0.6 mg/dL mg/dL (0.15-1.2) AST 30 U/L U/L (0-40) ALT 31 U/L U/L (0-41) Alkaline Phosphata se 277 IU/L H IU/L (40-130) Total Protein 8.4 g/dL g/dL (6.6-8.7) Albumin 3.8 g/dL g/dL (3.5-5.2) Globulin 4.6 g/dL g/dL (1.3-4.6) Lipase 41 U/L U/L (13-60) Urine Color Urine Appearance Urine pH Ur Specific Gravit y Urine Protein Urine Glucose (UA) Urine Ketones Urine Blood Urine Nitrate Urine Bilirubin Urine Urobilinogen Ur Leukocyte Carina ase Urine RBC Urine WBC Ur Squamous Epith Cells Amorphous Sediment Urine Bacteria 04/12/21 08:22 WBC RBC Hgb Hct MCV MCH MCHC RDW Plt Count MPV Neut % (Auto) Lymph % (Auto) [place] % (Auto) Eos % (Auto) Baso % (Auto) Neut # (Auto) Lymph # (Auto) [place] # (Auto) Eos # (Auto) Baso # (Auto) Nucleated RBC % (a uto) Nucleated RBCs # Sodium Potassium Chloride Carbon Dioxide Anion Gap BUN Creatinine GFR Calculation Glucose Calculated Osmolal ity Lactic Acid Calcium Total Bilirubin AST ALT Alkaline Phosphata se Total Protein Albumin Globulin Lipase Urine Color Yellow (Yellow) Urine Appearance Clear (CLEAR) Urine pH 5 (5-7) Ur Specific Gravit y 1.010 (1.005-1.030) Urine Protein 1+ H (Negative) Urine Glucose (UA) Norm (Normal) Urine Ketones Negative (Negative) Urine Blood Neg (Negative) Urine Nitrate Negative (Negative) Urine Bilirubin 1+ H (Negative) Urine Urobilinogen 1 mg/dL H mg/dL (Negative) Ur Leukocyte Carina ase Negative (Negative) Urine RBC Rare /hpf /hpf (0-2) Urine WBC Rare /hpf /hpf (0-5) Ur Squamous Epith Cells 0-4 /hpf H /hpf (0-5) Amorphous Sediment Not Reportable Urine Bacteria None /hpf /hpf (NONE) Discharge Plan Discharge Patient Disposition: Admitted As Inpatient Clinical Impression: Fever, Abdominal pain, Status post cholecystectomy, Cough Condition: Stable Sign Out Sign Out Data: Patient Sign Out occurred on 04/12/21 at 05:49. Patient's care was discussed, and care was transferred from to Valentín Langley DO. Coding Level of Care Code ED Pharmacy Technician Assistant for Chg Fwd Exam Comprehensive Documented by User: Valentín Langley DO 04/12/21 10:08 HPI - Abdominal Pain General: Chief Complaint: Abdominal Pain Stated Complaint: ABD PAIN Time Seen by Provider: 04/12/21 04:56 Course Vital Signs: Vital signs: Vital Signs Temperature 98.3 F 04/12/21 09:00 Pulse Rate 65 04/12/21 09:00 Respiratory Rate 25 H 04/12/21 09:00 Blood Pressure 109/58 04/12/21 09:00 Pulse Oximetry 93 04/12/21 09:00 MDM - Abdominal Pain MDM Narrative: Medical decision making narrative: CT shows changes consistent with recent surgery. White count is normal alk phos is elevated but decline from previous. The remainder of his liver functions and T bili are normal. Discussed with Dr. Wallis. He will see the patient in consultation also discussed with Dr. Stafford he will he will admit patient started Cipro and Flagyl cultures are done patient does have a little bit of a cough we will go ahead and get a Covid swab as well. Patient to be admitted to the floor orders are written. Given his fever we will go ahead and admit. Labs EKG and imaging reviewed as found in the chart. Lab Data: Labs: Lab Results 04/12/21 04/12/21 04/12/21 05:04 05:04 05:04 WBC 8.0 10^3/uL 10^3/ uL (4.0-10.0) RBC 4.58 10^6/uL 10^6 /uL (4.1-5.3) Hgb 14.1 g/dL g/dL (11.7-16.6) Hct 41.4 % L % (42.0-52.0) MCV 90.4 fl fl (80-94) MCH 30.8 pg pg (28.0-34.0) MCHC 34.1 g/dL g/dL (30.0-36.0) RDW 13.0 % % (12.1-15.1) Plt Count 309 10^3/cmm 10^3 /cmm (130-400) MPV 10.2 fL fL (7.4-10.4) Neut % (Auto) 81.7 % % Lymph % (Auto) 12.4 % % [place] % (Auto) 4.3 % % Eos % (Auto) 0.8 % % Baso % (Auto) 0.4 % % Neut # (Auto) 6.55 10^3/uL 10^3 /uL (1.8-7.7) Lymph # (Auto) 1.0 10^3/uL 10^3/ uL (0.8-4.8) [place] # (Auto) 0.3 10^3/uL 10^3/ uL (0.2-0.9) Eos # (Auto) 0.1 10^3/uL 10^3/ uL (0.0-0.8) Baso # (Auto) 0.0 10^3/uL 10^3/ uL (0.0-0.1) Nucleated RBC % (a uto) 0 % % Nucleated RBCs # 0.0 /100WBC /100W BC Sodium 135 mmol/L L mmol /L (136-145) Potassium 4.3 mmol/L mmol/L (3.5-5.1) Chloride 97 mmol/L L mmol/ L (98-107) Carbon Dioxide 22 mmol/L mmol/L (22-29) Anion Gap 20.3 H (5-19) BUN 17 mg/dL mg/dL (8-23) Creatinine 1.1 mg/dL mg/dL (0.7-1.2) GFR Calculation Not Reportable Glucose 165 mg/dL H mg/dL (65-115) Calculated Osmolal ity 285 mOsm/kg mOsm/ kg (285-295) Lactic Acid 1.3 mmol/L mmol/L (0.5-2.2) Calcium 9.9 mg/dL mg/dL (8.5-10.5) Total Bilirubin 0.6 mg/dL mg/dL (0.15-1.2) AST 30 U/L U/L (0-40) ALT 31 U/L U/L (0-41) Alkaline Phosphata se 277 IU/L H IU/L (40-130) Total Protein 8.4 g/dL g/dL (6.6-8.7) Albumin 3.8 g/dL g/dL (3.5-5.2) Globulin 4.6 g/dL g/dL (1.3-4.6) Lipase 41 U/L U/L (13-60) Urine Color Urine Appearance Urine pH Ur Specific Gravit y Urine Protein Urine Glucose (UA) Urine Ketones Urine Blood Urine Nitrate Urine Bilirubin Urine Urobilinogen Ur Leukocyte Carina ase Urine RBC Urine WBC Ur Squamous Epith Cells Amorphous Sediment Urine Bacteria 04/12/21 08:22 WBC RBC Hgb Hct MCV MCH MCHC RDW Plt Count MPV Neut % (Auto) Lymph % (Auto) [place] % (Auto) Eos % (Auto) Baso % (Auto) Neut # (Auto) Lymph # (Auto) [place] # (Auto) Eos # (Auto) Baso # (Auto) Nucleated RBC % (a uto) Nucleated RBCs # Sodium Potassium Chloride Carbon Dioxide Anion Gap BUN Creatinine GFR Calculation Glucose Calculated Osmolal ity Lactic Acid Calcium Total Bilirubin AST ALT Alkaline Phosphata se Total Protein Albumin Globulin Lipase Urine Color Yellow (Yellow) Urine Appearance Clear (CLEAR) Urine pH 5 (5-7) Ur Specific Gravit y 1.010 (1.005-1.030) Urine Protein 1+ H (Negative) Urine Glucose (UA) Norm (Normal) Urine Ketones Negative (Negative) Urine Blood Neg (Negative) Urine Nitrate Negative (Negative) Urine Bilirubin 1+ H (Negative) Urine Urobilinogen 1 mg/dL H mg/dL (Negative) Ur Leukocyte Carina ase Negative (Negative) Urine RBC Rare /hpf /hpf (0-2) Urine WBC Rare /hpf /hpf (0-5) Ur Squamous Epith Cells 0-4 /hpf H /hpf (0-5) Amorphous Sediment Not Reportable Urine Bacteria None /hpf /hpf (NONE) Discharge Plan Discharge Patient Disposition: Admitted As Inpatient Clinical Impression: Fever, Abdominal pain, Status post cholecystectomy, Cough Condition: Stable Sign Out Sign Out Data: Patient Sign Out occurred on 04/12/21 at 05:49. Patient's care was discussed, and care was transferred from to Valentín Langley DO. Coding Level of Care Code ED Pharmacy Technician Assistant for Stephg Fwd Exam Comprehensive
[2021-04-12] MEDS: morphine 4 mg/mL SDV 1 mL IVP ×2 (05:13→06:17)
[2021-04-12] MEDS: ondansetron 2 mg/ML SDV 2 mL 4 MG IVP (05:13)
[2021-04-12 05:20] LABS: Basophils % 0.4 %; Eosinophils # 0.1 10^3/uL (0.0-0.8); Eosinophils % 0.8 %; Hematocrit 41.4 % (42.0-52.0); Hemoglobin 14.1 g/dL (11.7-16.6); Lymphocytes % 12.4 %; Mean Corpuscular HGB Conc 34.1 g/dL (30.0-36.0); Mean Corpuscular Hemoglobin 30.8 pg (28.0-34.0); Mean Corpuscular Volume 90.4 fl (80-94); Mean Platelet Volume 10.2 fL (7.4-10.4); Monocytes # 0.3 10^3/uL (0.2-0.9); Monocytes % 4.3 %; Neutrophils # 6.55 10^3/uL (1.8-7.7); Neutrophils % 81.7 %; Nucleated Red Blood Cells % 0 %; Platelet Count 309 10^3/cmm (130-400); Red Blood Count 4.58 10^6/uL (4.1-5.3)
--- NOTE | 2021-04-12 05:24 | XRR_ITS ---
PROCEDURE INFORMATION: Exam: XR Chest Exam date and time: 04/12/2021 5:24 AM Age: 70 years old Clinical indication: Fever; Prior surgery; Surgery date: 6+ months; Surgery type: Cabg TECHNIQUE: Imaging protocol: XR of the chest. Views: 1 view. COMPARISON: CR XR chest 1V portable [id number] 02/28/2021 1:12 PM FINDINGS: Lungs: Patchy bibasilar atelectasis or other infiltrates. Pleural spaces: Unremarkable. No pleural effusion. No pneumothorax. Heart/Mediastinum: No cardiomegaly. Bones/joints: Previous median sternotomy. XR/XR chest 1V portable [id number] IMPRESSION: Patchy bibasilar atelectasis or other infiltrates. Radiation Dose CTDIVOL = (mGy): DLP = (mGy-cm)
[2021-04-12] MEDS: acetaminophen 500 mg Tablet 1000 MG PO (05:32)
[2021-04-12 05:42] LABS: Alanine Aminotransferase 31 U/L (0-41); Albumin Level 3.8 g/dL (3.5-5.2); Alkaline Phosphatase 277 IU/L (40-130); Anion Gap 20.3 (5-19); Aspartate Amino Transferase 30 U/L (0-40); Blood Urea Nitrogen 17 mg/dL (8-23); Calcium 9.9 mg/dL (8.5-10.5); Carbon Dioxide 22 mmol/L (22-29); Chloride 97 mmol/L (98-107); Globulin 4.6 g/dL (1.3-4.6); Glucose 165 mg/dL (65-115); Lipase 41 U/L (13-60); Osmolality Calculated 285 mOsm/kg (285-295); Potassium 4.3 mmol/L (3.5-5.1); Sodium 135 mmol/L (136-145); Total Bilirubin 0.6 mg/dL (0.15-1.2); Total Protein 8.4 g/dL (6.6-8.7)
[2021-04-12 05:46] LABS: Lactic Sepsis W/Reflex 1.3 mmol/L (0.5-2.2)
[2021-04-12] MEDS: iohexol 300 mg/mL 100 mL Btl IV (06:15)
[2021-04-12] MEDS: ciprofloxacin 400 MG/200 ML PREMIX 200 MG IV (06:18)
[2021-04-12] MEDS: metroNIDAZOLE IV 500 MG/100 ML PREMIX 100 MG IV ×2 (06:19→18:30)
--- NOTE | 2021-04-12 07:14 | PC.NURSE ---
Rreceived report from camera repair technician nurse. Pt is sleeping.
[2021-04-12 09:20] LABS: Add Urine Microscopic? YES; Bilirubin Urine 1+ (Negative); Blood Urine Neg (Negative); Glucose Urine UA Norm (Normal); Ketones Urine Negative (Negative); Leukocyte Esterase Urine Negative (Negative); Nitrate Urine Negative (Negative); Protein Urine 1+ (Negative); Urine Appearance Clear (CLEAR); Urine Color Yellow (Yellow); Urobilinogen Urine 1 mg/dL (Negative); pH Urine 5 (5-7)
[2021-04-12 09:23] LABS: Add Urine Culture? No; RBC Urine RARE /hpf (0-2); Squamous Epithelial Cell Urine 0-4 /hpf (0-5); WBC Urine RARE /hpf (0-5)
--- NOTE | 2021-04-12 10:29 | PM.HP ---
Providers/Chief Complaint Primary Care Provider: Red Estrada DO Chief Complaint: ABD PAIN History of Present Illness Igor Johnson is a 70 year old male who presented to the emergency department from [facility] with abdominal discomfort. Fever was noted in the emergency department, 101.2 ?F. Patient was recently evaluated in the emergency department on February 28, and transferred to [facility] for ERCP. From my understanding he was diagnosed with cholangitis, received IV antibiotics and was discharged on p.o. antibiotics, to later be admitted for a laparoscopic cholecystectomy per patient 1 week ago. He reports that since the surgery he has pain in the abdominal area on a daily basis. He was receiving oxycodone intermittently following the surgery but this was discontinued yesterday and he received Tylenol alone. retirement did not notice any fevers, nausea, vomiting. He had been having bowel movements. This morning patient reported abdominal pain was no better, he needed pain medicine and he wanted evaluation in the emergency department. Currently patient reports the pain is better. It is about at the level it was after his surgery. He denies any cough, shortness of breath, or other symptoms. When asked where his pain is he points to locations over in his entire abdomen. Review of Systems General: Reports: 10 or more systems reviewed and unremarkable except in HPI and below Const: Denies: fever(s) or chills Eyes: Denies: change in vision ENMT: Denies: throat pain Card: Denies: chest pain Resp: Denies: dyspnea GI: Reports: abdominal pain; Denies: nausea, vomiting, diarrhea or constipation : Denies: flank pain Musc: Denies: neck pain Skin/Breast: Denies: rash Neuro: Denies: headache(s) Psych: Denies: anxiety or depression Endo: Denies: polyuria Yamil/Lymph: Denies: easy bruising All/Imm: Denies: urticaria Medications/Allergies Home Medications Medication Instructions Recorded Confirmed Last Taken Type acetaminophen [Tylenol] 650 mg PO Q6H PRN 02/28/21 02/28/21 02/26/21 History aspirin [Aspir-81] 81 mg PO DAILY@02/28/21 04/12/21 04/11/21 History bisacodyl 10 mg IN DAILY PRN 02/28/21 02/28/21 Unknown History clopidogrel [Plavix] 75 mg PO DAILY@02/28/21 02/28/21 02/28/21 07:33 History docusate sodium 100 mg PO DAILY@02/28/21 02/28/21 02/28/21 07:33 History furosemide [Lasix] 20 mg PO DAILY@02/28/21 02/28/21 02/28/21 04:26 History gabapentin 300 mg PO BEDTIME@02/28/21 02/28/21 02/27/21 History insulin aspart U-100 [Novolog 12 unit SUBCUT .WITH MEALS 02/28/21 02/28/21 02/28/21 11:17 History Flexpen U-100 Insulin] 12 units insulin glargine [Lantus Solostar 34 unit SUBCUT BEDTIME@02/28/21 02/28/21 02/27/21 History U-100 Insulin] isosorbide mononitrate 30 mg PO DAILY@02/28/21 02/28/21 02/28/21 07:33 History levetiracetam 750 mg PO BID@02/28/21 02/28/21 02/28/21 07:33 History magnesium hydroxide [Milk of 30 ml PO Q72H PRN 02/28/21 02/28/21 Unknown History Magnesia] nitroglycerin [Nitrostat] 0.4 mg SUBLINGUAL Q5M PRN 02/28/21 02/28/21 Unknown History pantoprazole [Protonix] 40 mg PO DAILY@02/28/21 02/28/21 02/28/21 07:33 History sertraline 25 mg PO DAILY@02/28/21 02/28/21 02/27/21 History Doxycycline [place] 30mg Ir/10mg 1 cap PO DAILY@04/12/21 04/11/21 History ketoconazole 1 applic TOPICAL .ON TUES AND Sun04/12/21 04/12/21 04/08/21 History metoprolol succinate 25 mg PO DAILY@04/12/21 04/12/21 04/11/21 History mirabegron [Myrbetriq] 25 mg PO DAILY@04/12/21 04/12/21 04/11/21 History Allergies Allergy/AdvReac Type Severity Reaction Status Date / Time metformin Allergy Unknown Verified 04/12/21 10:37 Penicillins Allergy Unknown Verified 04/12/21 10:37 Emgvuyc-Usq-Tmq Reductase Allergy Unknown Verified 04/12/21 10:37 Inhibitor PFSH Acute PFSH: Medical History (Updated 04/12/21 @ 10:47 by Colt Gill MD) Atrial fibrillation Coronary artery disease Depression Diabetes mellitus type 2 in obese Diabetic neuropathy GERD (gastroesophageal reflux disease) History of cerebral aneurysm History of CVA (cerebrovascular accident) Right hemiparesis Hyperlipidemia Hypertension Seizure disorder Surgical History (Updated 04/12/21 @ 10:36 by Colt Gill MD) History of cholecystectomy History of coronary artery bypass graft History of craniotomy Family History (Updated 04/12/21 @ 10:36 by Colt Gill MD) Other CAD (coronary artery disease) Social History (Updated 04/12/21 @ 10:36 by Colt Gill MD) Smoking and tobacco status: never smoked Alcohol intake: never Vitals/I&O/Wt Last Vital Signs Temp 98.3 F 04/12/21 09:00 Pulse 65 04/12/21 09:00 Resp 25 H 04/12/21 09:00 BP 109/58 04/12/21 09:00 Pulse Ox 93 04/12/21 09:00 04/11/21 04/12/21 04/12/21 22:59 06:59 14:59 Intake Total 100 / 100 Balance 100 / 100 Weight last 48 hrs Weight 104.326 kg Physical Exam Narrative: EXAM NARRATIVE: General exam is a white male, no distress HEENT: Pupils equally round. Oropharynx clear. Craniotomy scar noted. Neck is supple no lymphadenopathy thyromegaly Cardiovascular regular rate and rhythm without murmur, no S3 or S4 Lungs clear Abdomen is soft. Positive bowel sounds. Nonspecific tenderness. Surgical site, laparotomy scars without any obvious evidence of infection exam is deferred Extremities no cyanosis clubbing or edema Skin no rash Neuro: Slight decreased strength right side consistent with right hemiparesis. Data : 04/12/21 05:04 04/12/21 05:04 Micro: Microbiology 04/12/21 05:19 Blood Culture - Preliminary Blood SPECIMEN COLLECTED 04/12/21 05:04 Blood Culture - Preliminary Blood SPECIMEN COLLECTED Other data: LFTs normal with the exception of alk phos of 277. Lipase is 41. Lactic acid 1.3. Urinalysis negative. Chest x-ray bibasilar atelectasis CT abdomen pelvis demonstrates constipation, cholecystectomy, stent in common bile duct, ill-defined fluid collection level of gallbladder fossa 4-1/2 x 6 A&P Assessment and plan (1) Fever: Etiology unknown. Recently had cholecystectomy. However, CT scan does not definitively show any evidence of abscess or infection. Blood cultures Levaquin plus Flagyl Surgical opinion Atelectasis could also potentially explain fever. Status: Acute (2) Abdominal pain: Patient reports abdominal pain since discharge from the hospital. He was more of an issue yesterday and today as his oxycodone was discontinued. This may be related to postoperative pain. Patient reports his pain is under control currently. Hydrocodone/APAP as needed Status: Acute (3) Atelectasis of both lungs: Incentive spirometry Doubt pneumonia but Levaquin should cover this potential postoperative problem. Check Covid although unlikely. Has had multiple recent rapid tests at nursing facility, as well as preoperative. Not requiring oxygen Status: Acute (4) Status post cholecystectomy: Had cholangitis recently, common bile duct stent, and subsequent laparoscopic cholecystectomy Surgical opinion Status: Acute (5) Constipation: Colace twice daily Dulcolax suppository Status: Acute Additional A&P Information Coronary disease. Continue home medications Type 2 diabetes. Sliding scale insulin Hypertension. Continue home medications Seizure disorder. Seizure precautions Multiple other medical problems as outlined in past medical history. Lovenox for DVT prophylaxis Allow natural per patient's long term designation Attestations Medical Necessity Statement*: Will need less than 2 midnight stay for evaluation and treatment of fever, abdominal pain Time Spent in Patient Care: Greater than 35 minutes Coding Level of Care Code Acute Fuse Cup Expander for Chg Fwd Diagnoses Fever R50.9 Abdominal pain R10.9 Atelectasis of both lungs J98.11 Status post cholecystectomy Z90.49 Constipation K59.00
--- NOTE | 2021-04-12 10:37 | PC.PHAR ---
pt is [place] [facility] [phone]-ruby nurse from [facility] states the pt only had his lasix today-ruby states the pts oxycodone 5mg was dced yesterday 04/11/21 states the pt was only to take for 5 days-ruby nurse from [facility] states the pt is taking doxycyline monohyclate 30mg ir/10mg ec doesnt pull up in our system
[2021-04-12] MEDS: HYDROmorphone 1 mg/mL INJ 1 mL 0.5 MG IVP (11:08)
[2021-04-12 11:27] LABS: Glucose Point of Care 191 mg/dL (70-110)
[2021-04-12 12:05] LABS: SARS Covid-2 Antigen Negative (Negative)
[2021-04-12 13:05] LABS: Glucose Point of Care 178 mg/dL (70-110)
[2021-04-12] MEDS: insulin lispro 100 unit/1 mL SUBCUT ×2 (13:10→18:30)
[2021-04-12] MEDS: levofloxacin-dextrose 5 % 750 MG/150 ML PREMIX 100 MG IV (16:30)
[2021-04-12] MEDS: enoxaparin 40 mg/0.4 mL Syringe SUBCUT (16:30)
--- NOTE | 2021-04-12 16:53 | PM.CONSULT ---
Providers/Reason For Consult Consulting Physician/Specialty*: General Surgery Geronimo Wallis MD Reason for Consult*: Postoperative gallbladder fossa fluid collection/abdominal pain/fever following cholecystectomy last week. Attending Physician: Colt Gill MD Primary Care Provider: Red Estrada DO History of Present Illness History of Present Illness Igor Johnson is a 70 year old male who was transferred to [facility] in [place] in late January for an ERCP following the diagnosis of choledocholithiasis/cholangitis. A biliary stent was reportedly placed and the patient says he returned last week for a cholecystectomy on Sunday (6 days ago). He was on oxycodone postoperatively but apparently no further oxycodone was authorized past yesterday. The patient was reportedly upset that he was not getting any more pain medication and said he wanted to go to the local emergency room for evaluation. The patient tells me that he has the same kind of pain that he had since the day he had his surgery. When asked to point to where it is he rubs his hand across his lower abdomen where he obviously has a small linear bruise that appears to be in the process of resolution. He says he vomited once after getting to the hospital today but otherwise has been eating without any difficulty and remains hungry now. The patient says that he has had normal bowel movements since surgery. His last bowel movement was yesterday and he says a bowel movement every other day is typical for him. He continues to pass flatus today. While he was in the emergency department he was apparently found to have a temperature over 101 degrees despite a completely normal white blood cell count. A CAT scan showed a fluid collection with a small amount of air within it in the gallbladder fossa. The patient has been started on intravenous antibiotics. Review of Systems General: Reports: 10 or more systems reviewed and unremarkable except in HPI and below Const: Reports: fever(s) and chills GI: Reports: abdominal pain and vomiting Meds/Allergies Home Medications and Allergies Home Medications Medication Instructions Recorded Confirmed Last Taken Type acetaminophen [Tylenol] 650 mg PO Q6H PRN 02/28/21 04/12/21 04/12/21 01:45 History aspirin [Aspir-81] 81 mg PO DAILY@08 02/28/21 04/12/21 04/11/21 History bisacodyl 10 mg [place] DAILY PRN 02/28/21 04/12/21 Unknown History clopidogrel [Plavix] 75 mg PO DAILY@02/28/21 04/12/21 04/11/21 History docusate sodium 100 mg PO DAILY@02/28/21 04/12/21 04/11/21 History furosemide [Lasix] 20 mg PO DAILY@02/28/21 04/12/21 04/12/21 History gabapentin 300 mg PO BEDTIME@02/28/21 04/12/21 04/11/21 History insulin aspart U-100 [Novolog 12 unit SUBCUT .WITH MEALS 02/28/21 04/12/21 04/11/21 History Flexpen U-100 Insulin] insulin glargine [Lantus Solostar 34 unit SUBCUT BEDTIME@02/28/21 04/12/21 04/11/21 History U-100 Insulin] isosorbide mononitrate 30 mg PO DAILY@02/28/21 04/12/21 04/11/21 History levetiracetam 750 mg PO BID@02/28/21 04/12/21 04/11/21 History magnesium hydroxide [Milk of 30 ml PO Q72H PRN 02/28/21 04/12/21 Unknown History Magnesia] nitroglycerin [Nitrostat] 0.4 mg SUBLINGUAL Q5M PRN 02/28/21 04/12/21 Unknown History pantoprazole [Protonix] 40 mg PO DAILY@02/28/21 04/12/21 04/11/21 History sertraline 25 mg PO DAILY@02/28/21 04/12/21 04/11/21 History Doxycycline [place] 30mg Ir/10mg 1 cap PO DAILY@04/12/21 04/12/21 04/11/21 History ketoconazole 1 applic TOPICAL .ON TUES AND Sun04/12/21 04/12/21 04/08/21 History metoprolol succinate 25 mg PO DAILY@04/12/21 04/12/21 04/11/21 History mirabegron [Myrbetriq] 25 mg PO DAILY@04/12/21 04/12/21 04/11/21 History Allergies Allergy/AdvReac Type Severity Reaction Status Date / Time metformin Allergy Unknown Verified 04/12/21 10:37 Penicillins Allergy Unknown Verified 04/12/21 10:37 Eljynac-Qlu-Dry Reductase Allergy Unknown Verified 04/12/21 10:37 Inhibitor Current Medications Current Medications Generic Name Dose Route Start Last Admin Trade Name Maurice PRN Reason Stop Dose Admin Enoxaparin Sodium 40 mg 04/12/21 15:40 04/12/21 16:30 Enoxaparin 40 Mg/0.4 Ml Syringe SUBCUT 40 mg Q24H KARTHIK Administration Levofloxacin/Dextrose 750 mg in 150 mls @ 100 mls/hr 04/12/21 15:40 04/12/21 16:30 Levaquin-D5w IV 100 mls/hr Q24H KARTHIK Administration Protocol Insulin Human Lispro 0 unit 04/12/21 12:00 04/12/21 13:10 Insulin Lispro 100 Unit/1 Ml SUBCUT 2 unit TIDWM KARTHIK Administration Protocol PFSH Acute PFSH: Medical History Atrial fibrillation Coronary artery disease Depression Diabetes mellitus type 2 in obese Diabetic neuropathy GERD (gastroesophageal reflux disease) History of cerebral aneurysm History of CVA (cerebrovascular accident) Right hemiparesis Hyperlipidemia Hypertension Seizure disorder Surgical History (Updated 04/12/21 @ 17:15 by Geronimo Wallis MD) History of cholecystectomy History of coronary artery bypass graft History of craniotomy Intracranial aneurysm Family History Other CAD (coronary artery disease) Social History Smoking and tobacco status: never smoked Alcohol intake: never Vitals/I&O/Wt Last Vital Signs Temp 98.1 F 04/12/21 11:00 Pulse 65 04/12/21 15:06 Resp 17 04/12/21 15:06 BP 129/69 04/12/21 15:06 Pulse Ox 97 04/12/21 15:06 04/12/21 04/12/21 04/12/21 06:59 14:59 22:59 Intake Total 100 / 300 200 / 300 Balance 100 / 300 200 / 300 Weight last 48 hrs Weight 230 lb Physical Exam Narrative: EXAM NARRATIVE: The patient was encountered in his hospital room. He does not appear to be in any distress. The pupils seem equal. He has a healed craniotomy scar on the right side of his skull. The patient has a contracture of his right upper extremity. The heart seems regular. No carotid bruits are heard. The lungs are clear anteriorly. The abdomen is moderately obese. All of his laparoscopic incisions are healing well but still have some Steri-Strips in place. He does not seem to be particularly tender anywhere on the abdomen to my exam with the exception of mild tenderness directly over his laparoscopic incisions. He has a resolving linear contusion over the lower abdomen, perhaps from a relatively recent injection of an anticoagulant. The extremities may reveal some very mild edema. Data Labs: Other Labs: Laboratory Tests 04/12/21 05:04 Total Bilirubin 0.6 AST 30 ALT 31 Alkaline Phosphata se 277 H Micro: Micro: Microbiology 04/12/21 05:19 Blood Culture - Pr eliminary Blood SPECIMEN [facility] 04/12/21 05:04 Blood Culture - Pr eliminary Blood SPECIMEN [facility] Imaging^: CT Abd/Pel: Radiologist's impression: CT scan abdomen/pelvis 04/12/2021 IMPRESSION: 1. Status post cholecystectomy with interval placement of a stent within the common bile duct. There is an ill-defined air containing fluid collection at the level of the gallbladder fossa measuring 4.7 x 4.3 x 6 cm which may represent postoperative changes in keeping with recent cholecystectomy. If symptoms persist, short-term repeat follow-up may be considered. 2. Constipation. A&P Assessment and plan (1) Abdominal fluid collection: The patient has a fluid collection in the gallbladder fossa which would be typical, at least initially, following a cholecystectomy. There are some air bubbles within it and he is a nearly week out from surgery. Any nitrogen in the abdominal cavity may take up to 10 days to completely resolve. It is difficult to guarantee that this does not represent some type of early infection but his white blood cell count is completely normal with a normal differential and he does not seem to be particularly tender over that spot. While I do not necessarily disagree with antibiotic coverage, I am leaning towards this being a benign postoperative collection for now. I will be happy to follow the patient with you for now. Status: Acute (2) Status post cholecystectomy: Status: Acute Consult Attestations Medical Necessity Statement: See admitting service's notation. Coding Level of Care Code Acute Crusher Plant Operator for Chg Fwd Diagnoses Abdominal fluid collection R18.8 Status post cholecystectomy Z90.49
[2021-04-12 17:45] LABS: Glucose Point of Care 201 mg/dL (70-110)
[2021-04-12] MEDS: docusate sodium 100 mg Capsule PO (18:30)
[2021-04-12] MEDS: sertraline 50 mg Tablet 25 MG PO (20:30)
[2021-04-12] MEDS: gabapentin 300 mg Capsule PO (20:30)
[2021-04-12] MEDS: levETIRAcetam 500 mg Tablet 750 MG PO (20:31)
[2021-04-12 21:07] LABS: Glucose Point of Care 187 mg/dL (70-110)
[2021-04-12] MEDS: insulin glargine 100 units/1 mL 34 UNIT SUBCUT (21:09)
[2021-04-13] MEDS: metroNIDAZOLE IV 500 MG/100 ML PREMIX 100 MG IV ×2 (00:32→07:10)
[2021-04-13 04:00] VITALS: BP 122/78; PULSE 77; RESP 19; TEMP 37.1; O2SAT 94
[2021-04-13] MEDS: FUROsemide 20 mg Tablet PO (05:00)
[2021-04-13 05:56] LABS: Basophils % 0.2 %; Eosinophils % 0.3 %; Hematocrit 39.3 % (42.0-52.0); Hemoglobin 12.6 g/dL (11.7-16.6); Lymphocytes # 1.1 10^3/uL (0.8-4.8); Lymphocytes % 8.9 %; Mean Corpuscular HGB Conc 32.1 g/dL (30.0-36.0); Mean Corpuscular Hemoglobin 30.4 pg (28.0-34.0); Mean Corpuscular Volume 94.7 fl (80-94); Mean Platelet Volume 10.4 fL (7.4-10.4); Monocytes # 0.8 10^3/uL (0.2-0.9); Neutrophils # 10.78 10^3/uL (1.8-7.7); Nucleated Red Blood Cells % 0 %; Platelet Count 273 10^3/cmm (130-400); Red Blood Count 4.15 10^6/uL (4.1-5.3); Red Cell Distribution Width 13.1 % (12.1-15.1); White Blood Count 12.8 10^3/uL (4.0-10.0)
[2021-04-13 06:22] LABS: Alanine Aminotransferase 27 U/L (0-41); Albumin Level 3.2 g/dL (3.5-5.2); Alkaline Phosphatase 213 IU/L (40-130); Anion Gap 16.2 (5-19); Aspartate Amino Transferase 20 U/L (0-40); Blood Urea Nitrogen 14 mg/dL (8-23); Carbon Dioxide 22 mmol/L (22-29); Chloride 98 mmol/L (98-107); Globulin 3.9 g/dL (1.3-4.6); Glucose 158 mg/dL (65-115); Osmolality Calculated 278 mOsm/kg (285-295); Potassium 4.2 mmol/L (3.5-5.1); Sodium 132 mmol/L (136-145); Total Bilirubin 0.8 mg/dL (0.15-1.2); Total Protein 7.1 g/dL (6.6-8.7)
[2021-04-13 06:46] LABS: Glucose Point of Care 151 mg/dL (70-110)
[2021-04-13 08:00] VITALS: BP 126/73; PULSE 69; RESP 19; TEMP 37.1; O2SAT 97
--- NOTE | 2021-04-13 09:35 | PC.CHAP ---
Pastoral Care Encounter/Spiritual Assessment Type of Contact [] Declined head of business development visit [] Patient/Family/Request visit [] Outpatient visit [] Follow-up visit [] Physician referral [] Code/Alert [x]x Routine visit [] Staff referral [] Actively dying [] Patient sleeping [] Family support [] [] Out of room [] Palliative care [] [] Receiving care in room [] Pre-surgical visit [] Trauma [] Long length of stay [] ICU visit [] Other: Relational/Emotional Strength [x] Patient feels connected with others/family/visitors/staff [] Distress [] Loneliness/isolation [] Abandonment Spirituality of Patient [x] Person of Neda [] Attends Baptist of their Neda x[]x Believes in Prayer [] Reads Bible or Sikh materials [] There are Spiritual issues to be addressed Mobile Application Engineer Interventions [x] Prayer [x Active listening [x] Non-anxious presence [] Spiritual/emotional support [] Crisis/trauma care [] Spiritual counseling [] Bereavement support [] Provided bereavement packet [] Provided Bible/devotional materials [] Provided toy/stuffed animal, coloring book to patient or family member [] Provided Communion [] Anointing/[place] [] Salvation [x] Completed spiritual assessment [] Other: Impact on Illness or Injury [] Angry [] Fearful [] Anxious [x] Often cries [] Exhaustion [] Unable to work [] Unable to attend shinto [] Unable to walk/stand [] Unable to read [] Unable to drive [] Unable to eat/drink [] Unable to sleep [] Unable to be with family [] Patient intubated [] Other: Summary Time spent with patient 10 min
--- NOTE | 2021-04-13 09:55 | P.PN_ITS ---
Subjective Subjective: Interval history: No fever overnight. Reports he still has some belly pain, but it is not severe. Medications: Reviewed: Yes Vitals/I&O/Wt Last Vital Signs Temp 98.7 F 04/13/21 04:00 Pulse 77 04/13/21 04:00 Resp 19 H 04/13/21 04:00 BP 122/78 04/13/21 04:00 Pulse Ox 94 04/13/21 04:00 04/12/21 04/13/21 04/13/21 22:59 06:59 14:59 Intake Total 770 / 870 300 / 1170 Output Total 150 / 150 Balance 770 / 870 150 / 1020 Weight last 48 hrs Weight 104.326 kg Physical Exam Narrative: EXAM NARRATIVE: General exam is a white male, no distress Neck is supple no lymphadenopathy thyromegaly Cardiovascular regular rate and rhythm without murmur, no S3 or S4 Lungs clear Abdomen is soft. Positive bowel sounds. Nonspecific tenderness. Surgical site, laparotomy scars without any obvious evidence of infection Extremities no cyanosis clubbing or edema Data : 04/13/21 05:47 04/13/21 05:47 Micro: Microbiology 04/12/21 05:19 Blood Culture - Preliminary Blood NEGATIVE TO DATE 04/12/21 05:04 Blood Culture - Preliminary Blood NEGATIVE TO DATE A&P Assessment and plan (1) Fever: Etiology unknown. Recently had cholecystectomy. However, CT scan does not definitively show any evidence of abscess or infection. Blood cultures negative to date Continue Levaquin plus Flagyl Appreciate surgical opinion Atelectasis could also potentially explain fever. Patient does report occasional coughing. Status: Acute (2) Abdominal pain: Patient reports abdominal pain since discharge from the hospital. He was more of an issue yesterday and today as his oxycodone was discontinued. This may be related to postoperative pain. Patient reports his pain is under control currently. Hydrocodone/APAP as needed Status: Acute (3) Atelectasis of both lungs: Incentive spirometry Doubt pneumonia but Levaquin should cover this potential postoperative problem. Check Covid although unlikely. Has had multiple recent rapid tests at nursing facility, as well as preoperative. This is currently pending Not requiring oxygen Status: Acute (4) Status post cholecystectomy: Had cholangitis recently, common bile duct stent, and subsequent laparoscopic cholecystectomy Surgical opinion Status: Acute (5) Constipation: Colace twice daily Dulcolax suppository Status: Acute Additional A&P Information Coronary disease. Continue home medications Type 2 diabetes. Sliding scale insulin Hypertension. Continue home medications Seizure disorder. Seizure precautions Multiple other medical problems as outlined in past medical history. Lovenox for DVT prophylaxis Allow natural per patient's [facility] designation Attestations Medical Necessity Statement*: Needs further hospitalization for IV antibiotics secondary to concern of fever, abdominal pain, recent cholecystectomy at this time. Will discuss with surgery when discharged would be appropriate on oral antibiotics. Coding Level of Care Code Acute Chemical Operations Specialist for Chg Fwd Diagnoses Fever R50.9 Abdominal pain R10.9 Atelectasis of both lungs J98.11 Status post cholecystectomy Z90.49 Constipation K59.00
--- NOTE | 2021-04-13 10:02 | P.PN_ITS ---
Subjective Subjective: Interval history: When can I get out of here? The patient is passing flatus and says he is eating without problems. His abdomen feels better today. Vitals/I&O/Wt Last Vital Signs Temp 98.7 F 04/13/21 04:00 Pulse 77 04/13/21 04:00 Resp 19 H 04/13/21 04:00 BP 122/78 04/13/21 04:00 Pulse Ox 94 04/13/21 04:00 04/12/21 04/13/21 04/13/21 22:59 06:59 14:59 Intake Total 770 / 1170 300 / 1170 Output Total 150 / 150 Balance 770 / 1020 150 / 1020 Weight last 48 hrs Weight 230 lb Physical Exam Narrative: EXAM NARRATIVE: Bowel sounds are actually better today. Patient still has some very mild scattered tenderness but nothing impressive. Data : 04/13/21 05:47 04/13/21 05:47 Micro: Microbiology 04/12/21 05:19 Blood Culture - Preliminary Blood NEGATIVE TO DATE 04/12/21 05:04 Blood Culture - Preliminary Blood NEGATIVE TO DATE A&P Assessment and plan (1) Abdominal fluid collection: Patient has been afebrile for over 24 hours but his white blood cell count is mildly elevated. I still doubt it has much to do with the abdominal fluid collection in the gallbladder fossa. Discussed with Dr. Gill. He is contemplating leaving the patient on antibiotics for 5 days anyway for a possible pulmonary source. Status: Acute (2) Status post cholecystectomy: Status: Acute Attestations Medical Necessity Statement*: See admitting service's notation. Coding Level of Care Code Acute Garage Door Opener Installer for Marisol Alcantar Diagnoses Abdominal fluid collection R18.8 Status post cholecystectomy Z90.49
--- NOTE | 2021-04-13 10:12 | P.DS_ITS ---
Discharge Providers Date of Admission: 04/12/21 10:53 Date of Discharge: April 13, 2021 Attending Provider at Admission: Colt Gill MD Attending Provider at Discharge: Colt Gill MD Primary Care Provider: Red Estrada DO Diagnoses at Discharge Discharge Diagnosis (1) Abdominal fluid collection: Status: Acute (2) Status post cholecystectomy: Status: Acute Reason for Visit Reason for Visit: ABD PAIN Hospital Course Hospital Course Igor is a 70-year-old male admitted through the emergency department with abdominal discomfort. He had recently had a cholecystectomy. He was placed on Levaquin and Flagyl. Atelectasis was noted at the bases of both lungs as well. He did not require oxygen. Fever was present in the emergency department. The next day the patient reported he was much better. He had been afebrile for over 24 hours. Laboratory was normal with the exception of a slight elevation in alk phos which was improving and a white blood cell count of 12. I discussed this case with surgery and secondary to his significant improvement it was thought he could be discharged to his longterm facility for further monitoring there on oral antibiotics for the next 5 days. He should keep his regular postoperative follow-up with his surgeon, and return here for any severe discomfort or worsening. Physical Exam Narrative: EXAM NARRATIVE: General exam no distress Neck supple Cardiovascular regular in rhythm Lungs clear Abdomen is soft. Positive bowel sounds. Nonspecific extremely mild subjective tenderness more in the left lower quadrant. Denied any right upper quadrant discomfort on exam today. Extremities no cyanosis clubbing or edema Discharge Data Data Completed and Pending: Completed Studies During Hospitalization Category Date Time Status CT abdomen pelvis w con* [id number] Urge nt Cat Scan 04/12/21 05:02 Completed XR chest 1V chidi ble [id number] Stat Exams 04/12/21 05:24 Completed Pending at discharge Category Date Time Status Blood Culture Sta t Lab 04/12/21 05:19 Results Complete Blood Co unt w/Auto AM LABS Lab 04/14/21 04:00 Ordered Comprehensive Met abolic Panel AM LA BS Lab 04/14/21 04:00 Ordered Coronavirus Test [facility] ne Lab 04/12/21 11:13 Received Labs from last 24 hours 04/13/21 04/13/21 04/13/21 06:41 05:47 05:47 WBC 12.8 H RBC 4.15 Hgb 12.6 Hct 39.3 L MCV 94.7 H MCH 30.4 MCHC 32.1 D RDW 13.1 Plt Count 273 MPV 10.4 Neut % (Auto) 84.0 Lymph % (Auto) 8.9 Stevens % (Auto) 6.0 Eos % (Auto) 0.3 Baso % (Auto) 0.2 Neut # (Auto) 10.78 H Lymph # (Auto) 1.1 Stevens # (Auto) 0.8 Eos # (Auto) 0.0 Baso # (Auto) 0.0 Nucleated RBC % (a uto) 0 Nucleated RBCs # 0.0 Sodium 132 L Potassium 4.2 Chloride 98 Carbon Dioxide 22 Anion Gap 16.2 BUN 14 Creatinine 0.9 GFR Calculation Not Reportable Glucose 158 H POC Glucose 151 H Calculated Osmolal ity 278 L Calcium 9.0 Total Bilirubin 0.8 AST 20 ALT 27 Alkaline Phosphata se 213 H Total Protein 7.1 Albumin 3.2 L Globulin 3.9 Nasal/Oral COVID-1 9 PCR SARS-CoV-2 Ag (Rap id) 04/12/21 04/12/21 04/12/21 20:59 17:42 13:01 WBC RBC Hgb Hct MCV MCH MCHC RDW Plt Count MPV Neut % (Auto) Lymph % (Auto) Stevens % (Auto) Eos % (Auto) Baso % (Auto) Neut # (Auto) Lymph # (Auto) Stevens # (Auto) Eos # (Auto) Baso # (Auto) Nucleated RBC % (a uto) Nucleated RBCs # Sodium Potassium Chloride Carbon Dioxide Anion Gap BUN Creatinine GFR Calculation Glucose POC Glucose 187 H 201 H 178 H Calculated Osmolal ity Calcium Total Bilirubin AST ALT Alkaline Phosphata se Total Protein Albumin Globulin Nasal/Oral COVID-1 9 PCR SARS-CoV-2 Ag (Rap id) 04/12/21 04/12/21 04/12/21 11:23 11:13 11:13 WBC RBC Hgb Hct MCV MCH MCHC RDW Plt Count MPV Neut % (Auto) Lymph % (Auto) Stevens % (Auto) Eos % (Auto) Baso % (Auto) Neut # (Auto) Lymph # (Auto) Stevens # (Auto) Eos # (Auto) Baso # (Auto) Nucleated RBC % (a uto) Nucleated RBCs # Sodium Potassium Chloride Carbon Dioxide Anion Gap BUN Creatinine GFR Calculation Glucose POC Glucose 191 H Calculated Osmolal ity Calcium Total Bilirubin AST ALT Alkaline Phosphata se Total Protein Albumin Globulin Nasal/Oral COVID-1 9 PCR Pending SARS-CoV-2 Ag (Rap id) Negative Vitals: Last Vital Signs Temp 98.7 F 04/13/21 04:00 Pulse 77 04/13/21 04:00 Resp 19 H 04/13/21 04:00 BP 122/78 04/13/21 04:00 Pulse Ox 94 04/13/21 04:00 Discharge Plan Discharge Patient Disposition: Xfer SNF Condition: Stable Prescriptions: New levofloxacin 500 mg tablet 500 mg PO DAILY 5 Days RF: 0 metronidazole [Flagyl] 500 mg tablet 500 mg PO TID Qty: 15 RF: 0 Continued acetaminophen [Tylenol] 325 mg Tablet 650 mg PO Q6H PRN (Reason: Pain) RF: 0 isosorbide mononitrate 30 mg Tablet Extended Release 24 Hr 30 mg PO DAILY@08 RF: 0 clopidogrel [Plavix] 75 mg Tablet 75 mg PO DAILY@08 RF: 0 aspirin [Aspir-81] 81 mg Tablet,Delayed Release (Dr/Ec) 81 mg PO DAILY@08 RF: 0 magnesium hydroxide [Milk of Magnesia] 400 mg/5 mL Suspension 30 ml PO Q72H PRN (Reason: Constipation) RF: 0 bisacodyl 10 mg Suppository 10 mg HI DAILY PRN (Reason: Constipation) RF: 0 pantoprazole [Protonix] 40 mg Tablet,Delayed Release (Dr/Ec) 40 mg PO DAILY@08 RF: 0 nitroglycerin [Nitrostat] 0.4 mg Tablet, Sublingual 0.4 mg SUBLINGUAL Q5M PRN (Reason: Chest Pain) RF: 0 gabapentin 300 mg Capsule 300 mg PO BEDTIME@20 RF: 0 sertraline 25 mg Tablet 25 mg PO DAILY@20 RF: 0 levetiracetam 750 mg Tablet 750 mg PO BID@08,20 RF: 0 furosemide [Lasix] 20 mg Tablet 20 mg PO DAILY@05 RF: 0 docusate sodium 100 mg Tablet 100 mg PO DAILY@08 RF: 0 insulin aspart U-100 [Novolog Flexpen U-100 Insulin] 100 unit/mL (3 mL) Insulin Pen 12 unit SUBCUT .WITH MEALS RF: 0 Lantus Solostar U-100 Insulin 100 unit/mL (3 mL) Insulin Pen 34 unit SUBCUT BEDTIME@20 RF: 0 ketoconazole 2 % Shampoo 1 applic TOPICAL .ON AND SUN RF: 0 metoprolol succinate 25 mg Tablet Extended Release 24 Hr 25 mg PO DAILY@08 RF: 0 Myrbetriq 25 mg Tablet Extended Release 24 Hr 25 mg PO DAILY@08 RF: 0 Doxycycline Stevens 30mg Ir/10mg 1 cap PO DAILY@08 RF: 0 Discharge Orders: Discharge Order (Routine); Ordered 04/13/21 Ordered By: Colt Gill Referrals: Red Estrada DO [Primary Care Provider] - 4-7 days (CBC, CMP in 3 to 5 days) Discharge Diet: Diabetic Discharge Activity: Increase activity as tolerated Activity Restrictions/Additional Instructions: Take all medicine as prescribed. Return for any severe discomfort. Discharge Attestations Time Spent in Discharge Care*: greater than 30 min Quality Metrics Clinical Quality Measures During this hospital stay, did patient experience: None Coding Level of Care Code Acute Chg FW DC note Diagnoses Abdominal fluid collection R18.8 Status post cholecystectomy Z90.49
[2021-04-13] MEDS: metoprolol succinate ER (24 HR) 25 mg Tablet PO (10:18)
[2021-04-13] MEDS: clopidogrel 75 mg Tablet PO (10:18)
[2021-04-13] MEDS: insulin lispro 100 unit/1 mL SUBCUT (10:18)
[2021-04-13] MEDS: levETIRAcetam 500 mg Tablet 750 MG PO (10:18)
[2021-04-13] MEDS: isosorbide mononitrate ER 30 mg Tablet PO (10:18)
[2021-04-13] MEDS: aspirin 81 mg EC Tablet PO (10:18)
[2021-04-13] MEDS: pantoprazole DR 40 mg Tablet PO (10:18)
[2021-04-13] MEDS: docusate sodium 100 mg Capsule PO (10:18)
--- NOTE | 2021-04-13 12:41 | PC.NURSE ---
Report called to ANDREE Jack at [facility] and all questions answered.
[2021-04-13 12:47] LABS: Glucose Point of Care 214 mg/dL (70-110)
[2021-04-13 14:42] LABS: Coronavirus Test Green County Not Detected
--- NOTE | 2021-04-15 09:59 | PC.SOCIAL ---
discharge follow up call, spoke with patients nurse Jack and [facility]. she reports patient has been very non compliant with therapy. he wont' get out of bed. he is taking medications as prescribed. nurse denies any questions.
== END 2021-04-13 12:55 | disposition skilled nursing facility (03) ==
LOC: ER 12:33 → MEDSURG 13:49
PROVIDERS: Emergency Medicine; Admitting Provider Internal Medicine; Emergency Provider Family Medicine; PCP Internal Medicine; Visit Provider Internal Medicine
DX: R18.8 Other ascites (principal); Z90.49 Acquired absence of other specified parts of digestive tract; R50.9 Fever, unspecified; R10.9 Unspecified abdominal pain; J98.11 Atelectasis; K59.00 Constipation, unspecified; E11.40 Type 2 diabetes mellitus with diabetic neuropathy, unspecified; Z79.4 Long term (current) use of insulin; I25.10 Atherosclerotic heart disease of native coronary artery without angina pectoris; G40.909 Epilepsy, unspecified, not intractable, without status epilepticus; Z79.82 Long term (current) use of aspirin; Z86.73 Personal history of transient ischemic attack (TIA), and cerebral infarction without residual deficits; K21.9 Gastro-esophageal reflux disease without esophagitis; Z82.49 Family history of ischemic heart disease and other diseases of the circulatory system
CPT/HCPCS: 36415; 36416; 71045; 74177; 80053; 81001; 82962; 83605; 83690; 85025; 87040; 87426; 87635; 96365; 96367; 96372; 96375; 96376; 99285; G0378; J0744; J1170; J1650; J1815 ×2; J1956; J2270; J2405; Q9967; S0030